=== PATIENT | male | born 1985 | race Caucasian/White ===

== ENCOUNTER 2017-01-27 11:06 | Day surgery (SDC) | payer MEDICAID ==
[~2017-01-27] VITALS: Ht 172.7 cm; Wt 72.7 kg
[2017-01-27 12:01] VITALS: BP 116/74; Ht 172.7 cm; Wt 72.7 kg
[2017-01-27 12:19] LABS: HEMATOCRIT 46.4 % (42.0-54.0); MCH 31.3 pg (26.0-34.0); MCHC 34.5 g/dL (31.0-37.0); MCV 90.6 fL (80.0-100.0); MEAN PLATELET VOLUME 10.1 fL (7.4-10.4); RBC 5.12 10x6/uL (4.20-6.10); RDW 13.5 % (11.5-14.5); WBC 8.9 10x3/uL (4.8-10.8)
[2017-01-27 12:23] LABS: APTT 31.8 SECONDS (22.8-39.4); INR 1.03 (0.85-1.17); PROTIME 13.4 SECONDS (11.6-15.0)
[2017-01-27 12:26] LABS: ALBUMIN 4.6 g/dL (3.4-5.0); ALKALINE PHOSPHATASE 76 U/L (46-116); ALT (SGPT) 46 U/L (10-68); BILIRUBIN - TOTAL 0.91 mg/dL (0.2-1.3); CALC OSMOLALITY 286 mosm/kg (275-300); CALCIUM 9.3 mg/dL (8.5-10.1); CARBON DIOXIDE 31.9 mmol/L (21.0-32.0); CHLORIDE - SERUM 106 mmol/L (98-107); CREATININE - SERUM 1.1 mg/dL (0.6-1.3); GLUCOSE 91 mg/dL (74-106); POTASSIUM - SERUM 4.5 mmol/L (3.5-5.1); PROTEIN - SERUM 7.9 g/dL (6.4-8.2); SODIUM 144 mmol/L (136-145); UREA NITROGEN 13 mg/dL (7-18); eGFR NON AFRICAN AMERICAN 82 mL/min (90-120)
--- NOTE | 2017-01-27 14:10 | NUR ---
1405 BACK FROM EGD SOME SLEEPY RESP EVENA ND NONLABORED AND HOB ELEVATED.
--- NOTE | 2017-01-27 14:12 | NUR ---
1410 VOISE HERE ROUNDING ON PATIENT.
--- NOTE | 2017-01-27 14:46 | NUR ---
1435 TOLERATED FULL LIQUIDS MORE AWAKE AND RESP EVEN AND NONLABORED.
--- NOTE | 2017-01-27 14:47 | NUR ---
1447 UP AND VOIDED DCD IV CATHETER INTACT.
--- NOTE | 2017-01-27 15:03 | NUR ---
1500 WENT OVER DISCHARGE INSTRUCTIONS SCRIPT AND REFLUX AND VERBALLY UNDERSTANDS TO HOME VIA W/C WITH FAMILY.
--- NOTE | 2017-02-01 10:15 | OP ---
PATIENT NAME: MAGDI SHIPLEY MEDICAL RECORD: [id number] LOCATION:[facility] ADMISSION DATE: SURGEON: GARY BAKER DO DATE OF OPERATION: 01/27/2017 PROCEDURE: EGD with biopsies. SCOPE: Olympus video gastroscope. MEDICATIONS: Propofol 170 mg IV per anesthesia. INDICATIONS FOR PROCEDURE: Evaluation for esophageal varices in the setting of chronic hepatitis C, status post treatment completion. FINDINGS: Informed consent was given. The patient was made comfortable with the above medication. After an adequate level of sedation was reached by slow IV push, the patient was placed on his left side. Scope was then advanced under direct visualization through the mouth to the second portion of the duodenum. The proximal, middle, and distal thirds of the esophagus appeared normal, without evidence of esophageal varices. At the GE junction, there was some evidence of LA class C mild reflux induced esophagitis. Scope was advanced beyond the GE junction and retroflexed to view the cardia, where a small sliding hiatal hernia was present. Scope was advanced further into the stomach where there was some patchy possible gastritis located in the body of the stomach as well as the antrum and prepyloric region, characterized by granularity and erythema. Random biopsies were taken to rule out H. pylori and sent for histology. Scope was advanced in the duodenum where the bulb and second portion of the duodenum appeared normal. The scope was withdrawn from the patient. The patient tolerated the procedure well and there were no complications. ESTIMATED BLOOD LOSS: Less than 3 cc. IMPRESSION: 1. Reflux esophagitis grade C. 2. Small sliding hiatal hernia. 3. Possible gastritis. Biopsies taken. PLAN AND RECOMMENDATIONS: 1. Discharge home when recovery parameters are met. 2. Continue current diet with reflux precautions as needed. 3. Continue current medications. 4. We will give a per script for omeprazole 40 mg daily to be taken for 8 weeks regarding the esophagitis and gastritis. 5. Follow up in GI clinic as needed. TRANSINT:[id number] Voice Confirmation ID: [id number] DOCUMENT ID: [id number] OPERATIVE REPORT [id number] MAGDI SHIPLEY GARY BAKER DO at 1015 CC: [id number] DICTATION DATE: 01/27/17 1402 APPROVER: 01/27/17 214 [facility] [place] 01/27/17 [facility] [address] [place] [address]
== END 2017-01-27 15:00 | disposition home or self-care (01) ==
LOC: D.OPS 11:06
PROVIDERS: Anesthesiology
DX: K21.0 Gastro-esophageal reflux disease with esophagitis (principal); K44.9 Diaphragmatic hernia without obstruction or gangrene; B18.2 Chronic viral hepatitis C